=== PATIENT | female | born 1985 | race Caucasian/White ===

== ENCOUNTER 2022-07-24 23:00 | Emergency (ER) | payer OTHER | END 2022-07-25 01:19 | disposition home or self-care (01) | LOC: ERS 23:00 | DX: S00.83XA Contusion of other part of head, initial encounter (principal); F10.129 Alcohol abuse with intoxication, unspecified; K21.9 Gastro-esophageal reflux disease without esophagitis; W19.XXXA Unspecified fall, initial encounter | CPT/HCPCS: 70450 ==